=== PATIENT | female | born 1965 | race Caucasian/White ===

== ENCOUNTER 2022-12-28 01:13 | Emergency (ER) | payer OTHER ==
[2022-12-28] MEDS ORDERED: NEOMYCIN/POLYMYX/DEXAMETH OPHTH DROPS 5 ML RIGHTEYE STA (01:36)
--- NOTE | 2022-12-28 01:40 | ED Physician Documentation ---
PD HPI OPHTHO - Stated complaint Stated Complaint: R EYE INJ - Chief complaint Chief Complaint: Heent - History obtained from History obtained from: Patient - History of Present Illness Timing - onset: Enter time (1600), Today Timing - duration: Hours Timing - details: Gradual onset, Still present Location: Right Quality / character: Itching, Sharp Associated symptoms: Redness, Tearing, FB sensation Contributing factors: Other ([place] time [place] in [place] conditions[place] Similar symptoms before: Has not had sx before Recently seen: Not recently seen - Additional information Additional information: 57-year-old Feli Sommer has developed foreign body sensation in her right eye. She states that she was with her family [place] today in wind[place] conditions and felt that she might of gotten something into her eye. Her symptoms progressed over time and she feels that if she looks to the right she has more pain. She has a foreign body sensation and she has not had this previously. She did not have any blunt trauma to her eye. She has not otherwise been ill. Review of Systems Constitutional: denies: Fever, Chills Eyes: reports: Irritation, Other (fb sensation). denies: Loss of vision, Decreased vision, Photophobia, Discharge Ears: denies: Ear pain Nose: denies: Rhinorrhea / runny nose, Congestion Throat: denies: Sore throat Respiratory: denies: Cough GI: denies: Vomiting, Diarrhea PD PAST MEDICAL HISTORY - Present Medications Home Medications: Ambulatory Orders Medication Instructions Recorded Confirmed Neomycin/Poly/Dex Ophth Drops 1 drops RIGHTEYE QID #5 ml 12/28/22 [Maxitrol Ophth Drops] - Allergies Allergies/Adverse Reactions: Allergies Allergy/AdvReac Type Severity Reaction Status Date / Time No Known Drug Allergies Allergy Verified 12/28/22 01:21 PD ED PE NORMAL - Vitals Vital signs reviewed: Yes (hypertensvie mild ) - General General: Alert and oriented X 3, No acute distress - HEENT HEENT: Atraumatic, PERRL, EOMI, Other (The right eye has significant scleral injection and there is no obvious foreign body in the lower conjunctival sac. With eversion of the lid there is a tiny white particle which is removed with a Q-tip. 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 She has a tiny white piece of something and she had multiple linear abrasions to the cornea. These did appear superficial and I did not find other foreign material in the conjunctive a. I was able to instill Maxitrol ophthalmic drops. Departure - Departure Disposition: Home, Self Care Clinical Impression: Foreign body in eye Qualifiers: Encounter type: initial encounter Laterality: right Qualified Code(s): T15.91XA - Foreign body on external eye, part unspecified, right eye, initial encounter Corneal abrasion, right Qualifiers: Encounter type: initial encounter Qualified Code(s): S05.01XA - Injury of conjunctiva and corneal abrasion without foreign body, right eye, initial encounter Condition: Stable Instructions: ED Eye Particle Conjunctiva FB Rslv, ED Eye Injury Corneal Abrasion Follow-Up: Morris Doe MD [Provider Admit Priv/Credential] - Prescriptions: Neomycin/Poly/Dex Ophth Drops [Maxitrol Ophth Drops] 1 drops RIGHTEYE QID #5 ml Comments: Feli today it looks like there was a foreign body in your right eye under the lid. This has been removed and the expectation is you will have resolution of your symptoms within the day. There are some superficial corneal abrasions which will still feel like there is something in your eye until this heals, which usually takes about 24 hours. We have installed some drops in your eyes and the recommendation is to continue to take these for 1 to 2 days. When your symptoms are resolved you do not need to continue this medication. If your symptoms persist longer than 24 hours a follow-up with the bankruptcy attorney is indicated.
[2022-12-28 01:59] VITALS: BP 122/71
== END 2022-12-28 01:54 | disposition home or self-care (01) ==
LOC: ED 01:13
DX: T15.01XA Foreign body in cornea, right eye, initial encounter (principal)
CPT/HCPCS: 99282; 99283; J3490